=== PATIENT | female | born 1995 | race Caucasian/White ===

== ENCOUNTER 2020-10-21 00:06 | Inpatient (IN) ==
[2020-10-21] MEDS ORDERED: D5 1/2 NS 1000 ML 1,000 ML IV ONE (00:24)
[2020-10-21 00:30] VITALS: BMI 23.3
[2020-10-21 00:37] LABS: BILIRUBIN,URINE NEGATIVE (NEGATIVE); BLOOD/HEMOGLOBIN,URINE 3+ (NEGATIVE); GLUCOSE, URINE NEGATIVE (NEGATIVE); KETONES,URINE NEGATIVE (NEGATIVE); LEUKOCYTE ESTERASE ,URINE 2+ (NEGATIVE); NITRITES,URINE NEGATIVE (NEGATIVE); PROTEIN,URINE NEGATIVE (NEGATIVE); UROBILINOGEN,URINE NORMAL (NORMAL)
[2020-10-21 00:47] LABS: AMORPHOUS SEDIMENT,UR TRACE /HPF (NEGATIVE); APPEARANCE,URINE CLEAR (CLEAR); BACTERIA,URINE TRACE /HPF (NEGATIVE); COLOR,URINE STRAW (YELLOW); RBC,URINE 0-2 /HPF (0-3); SQUAMOUS EPITHELIAL CELL,UR FEW /HPF (NEGATIVE)
[2020-10-21 00:48] LABS: AMNISURE ROM TEST NO MEMBRANES RUPTURE (NO RUPTURE)
[2020-10-21] MEDS ORDERED: PITOCIN ONE (00:49)
[2020-10-21] MEDS ORDERED: BETADINE SOLN ONE ×2 (00:49→10:35)
[2020-10-21] MEDS ORDERED: LR 1000 ML IV 0 ML IV ONE (00:50)
[2020-10-21] MEDS ORDERED: AMPICILLIN VIAL 2 GRAM ONE (00:50)
[2020-10-21] MEDS ORDERED: D5LR 1L W PITOCIN 10 UNITS/L 10 UNITS/1,000 ML BAG IV ONE (00:50)
[2020-10-21] MEDS ORDERED: D5 1/2 NS 1L W PITOCIN 20 UNITS/L 20 UNITS/1,000 ML BAG IV ONE (00:50)
[2020-10-21] MEDS ORDERED: STADOL INJ ONE (00:50)
[2020-10-21] MEDS ORDERED: NS 100 ML IV 100 ML IV ONE (00:51)
[2020-10-21] MEDS ORDERED: D5 1/2 NS 1000 ML 1,000 ML IV SCH ×2 (01:00→03:00)
--- NOTE | 2020-10-21 01:45 | DR.OB ---
OB Quick Note - Assessment/Plan Assessment/Plan: L&D 10/31/20 at 1:15am S-No complaint except CTX. O-Afebrile,VSS NTO=195 with good LTV, +accel, no decel. CTX=q 2-3 min., strong by palpation CVX=6cm/90%/0/VTX AROM with clear fluid. IUPC and FSE placed. A-IUP at 40 4/7 weeks in active labor Unknown GBS P-Begin pitocin augmentation as needed. IV ABX in labor Anticipate
[2020-10-21] MEDS ORDERED: PHENERGAN INJ 25 MG IM PRN ×2 (02:16→04:33)
[2020-10-21] MEDS ORDERED: REGLAN INJ 10 MG VIAL IVP PRN (02:16)
[2020-10-21] MEDS ORDERED: PITOCIN IVP ONE (02:16)
[2020-10-21] MEDS ORDERED: D5LR 1L W PITOCIN 10 UNITS/L 10 UNITS/1,000 ML BAG IV PRN (02:16)
[2020-10-21] MEDS ORDERED: STADOL INJ IVP PRN (02:18)
[2020-10-21] MEDS ORDERED: AMPICILLIN VIAL 2 GRAM 2 G in NS 100 ML IV + SPIKE MINIBAG* 100 ML IV SCH (03:00)
[2020-10-21] MEDS ORDERED: XYLOCAINE 1 % (PLAIN) ONE (03:34)
[2020-10-21] MEDS ORDERED: MOTRIN TAB 800 MG PO PRN (04:33)
--- NOTE | 2020-10-21 04:33 | DR.OB ---
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 Head delivered over intact perineum. Nuchal cord x 2 reduced. Nose and mouth bulb suctioned. Body delivered over intact perineum. Cord clamped x 2 and cut. Infant handed to attendant. Cord sent for gases. Placenta delivered spontaneously / intact / 3 vessel cord. No CVX / vaginal / perineal tears. Viable male infant, VTX/OA, wt=7'9" and 9/10, stable to NBN. Mother stable to RR. PEI=[id number].
[2020-10-21] MEDS: D5 1/2 NS 1000 ML 1,000 ML with PITOCIN 20 UNITS IV SCH ×6 (05:30→20:04)
[2020-10-21] MEDS ORDERED: MILK OF MAGNESIA PO PRN (06:33)
[2020-10-21] MEDS ORDERED: ADACEL or BOOSTRIX TDaP VACCINE IM ONE (06:33)
[2020-10-21] MEDS ORDERED: DERMOPLAST PAIN RELIEF SPRAY TOP PRN (06:33)
[2020-10-21] MEDS ORDERED: AMBIEN PO PRN (06:33)
[2020-10-21] MEDS: PRENATAL PLUS PO SCH (09:00)
[2020-10-22 04:47] LABS: HEMATOCRIT 35.6 % (36.0-47.0); HEMOGLOBIN 11.2 g/dL (12.0-16.0)
[2020-10-22] MEDS: D5 1/2 NS 1000 ML 1,000 ML with PITOCIN 20 UNITS IV SCH ×2 (06:13)
[2020-10-22] MEDS: PRENATAL PLUS PO SCH (09:37)
[2020-10-22 13:23] VITALS: BP 111/71
== END 2020-10-22 13:30 | disposition home or self-care (01) | DRG 807 ==
LOC: ER 00:06 → LD 00:45 → MED/SURG 06:14
PROVIDERS: ADMIT Specialist; ATTEND Specialist
DX: O80 Encounter for full-term uncomplicated delivery; Z37.0 Single live birth; Z3A.40 40 weeks gestation of pregnancy; Z20.822 Contact with and (suspected) exposure to COVID-19

== ENCOUNTER 2022-04-01 17:01 | Inpatient (IN) ==
[2022-04-01 17:15] VITALS: BMI 24.0
[2022-04-01 17:24] LABS: BILIRUBIN,URINE NEGATIVE (NEGATIVE); BLOOD/HEMOGLOBIN,URINE 1+ (NEGATIVE); GLUCOSE, URINE NEGATIVE (NEGATIVE); KETONES,URINE NEGATIVE (NEGATIVE); LEUKOCYTE ESTERASE ,URINE 1+ (NEGATIVE); NITRITES,URINE NEGATIVE (NEGATIVE); PROTEIN,URINE 1+ (NEGATIVE); UROBILINOGEN,URINE NORMAL (NORMAL)
[2022-04-01 17:29] LABS: APPEARANCE,URINE CLEAR (CLEAR); BACTERIA,URINE 1+ /HPF (NEGATIVE); COLOR,URINE YELLOW (YELLOW); SQUAMOUS EPITHELIAL CELL,UR FEW /HPF (NEGATIVE)
[2022-04-01] MEDS ORDERED: PITOCIN IVP ONE (17:29)
[2022-04-01] MEDS ORDERED: PHENERGAN INJ 25 MG IM PRN ×2 (17:29→19:59)
[2022-04-01] MEDS ORDERED: REGLAN INJ 10 MG VIAL IVP PRN (17:29)
[2022-04-01] MEDS ORDERED: D5 LR + PITOCIN 10 UNITS/L 10 UNITS/1,000 ML BAG IV PRN (17:29)
[2022-04-01 17:30] LABS: AMNISURE ROM TEST THERE IS A RUPTURE (NO RUPTURE)
[2022-04-01] MEDS ORDERED: STADOL INJ IVP PRN (17:32)
[2022-04-01] MEDS ORDERED: BETADINE SOLN ONE (17:37)
[2022-04-01 17:59] LABS: BASOPHILS % (AUTO) 0.2 % (0.2-1.0); EOSINOPHILS % (AUTO) 0.5 % (0.9-2.9); HEMATOCRIT 30.2 % (36.0-47.0); HEMOGLOBIN 9.9 g/dL (12.0-16.0); LYMPHOCYTES # (AUTO) 1.9 X10^3/uL (1.3-2.9); LYMPHOCYTES % (AUTO) 25.7 % (21.0-51.0); MEAN CORPUSCULAR HEMOGLOBIN 24.4 pg (27.0-34.0); MEAN CORPUSCULAR HGB CONC 32.9 g/dL (33.0-35.0); MEAN CORPUSCULAR VOLUME 74.3 fL (80.0-100.0); MEAN PLATELET VOLUME 9.6 fL (7.4-11.0); MONOCYTES # (AUTO) 0.6 x10^3/uL (0.3-0.8); MONOCYTES % (AUTO) 7.5 % (0.0-13.0); NEUTROPHILS # (AUTO) 4.9 x10^3/uL (2.2-4.8); NEUTROPHILS % (AUTO) 66.1 % (42.0-75.0); RED BLOOD COUNT 4.07 X10^6/uL (3.5-5.4); RED CELL DISTRIBUTION WIDTH 17.3 % (11.6-16.5); WHITE BLOOD COUNT 7.4 X10^3/uL (3.6-10.0)
[2022-04-01] MEDS ORDERED: LR 1,000 ML IV 1,000 ML IV SCH (18:00)
[2022-04-01 18:07] LABS: BLOOD UREA NITROGEN 10 mg/dL (7-18); CARBON DIOXIDE 24.6 mmol/L (21-32); CHLORIDE 102 mmol/L (98-107); CREATININE 0.62 mg/dL (0.55-1.02); SODIUM 136 mmol/L (136-145); eGFR NON BLACK RACES > 60 (>60)
[2022-04-01 18:08] LABS: MICROCYTOSIS SLIGHT; PLATELET MORPHOLOGY COMMENT NORMAL (NORMAL)
[2022-04-01] MEDS ORDERED: MOTRIN TAB 800 MG PO PRN ×2 (19:59→21:00)
[2022-04-01] MEDS ORDERED: XYLOCAINE 1 % (PLAIN) ONE (20:03)
[2022-04-01] MEDS: D5 1/2 NS 1,000 ML 1,000 ML with PITOCIN 20 UNITS IV SCH ×2 (20:20)
[2022-04-01] MEDS ORDERED: MILK OF MAGNESIA PO PRN (21:00)
[2022-04-01] MEDS ORDERED: AMBIEN PO PRN (21:00)
[2022-04-02] MEDS: D5 1/2 NS 1,000 ML 1,000 ML with PITOCIN 20 UNITS IV SCH ×4 (04:15→12:31)
[2022-04-02 06:30] LABS: HEMATOCRIT 26.2 % (36.0-47.0); HEMOGLOBIN 8.8 g/dL (12.0-16.0)
[2022-04-02] MEDS ORDERED: NS 100 ML IV 100 ML with VENOFER 400 MG IV NR ×2 (09:27)
[2022-04-02] MEDS: PRENATAL PLUS PO SCH (10:11)
[2022-04-02] MEDS: DERMOPLAST PAIN RELIEF SPRAY TOP PRN (22:20)
[2022-04-02] MEDS: BETADINE SOLN TOP SCH (23:09)
[2022-04-03] MEDS: DERMOPLAST PAIN RELIEF SPRAY TOP PRN (05:28)
[2022-04-03 10:40] VITALS: BP 103/61
[2022-04-03] MEDS: BETADINE SOLN TOP SCH (10:42)
[2022-04-03] MEDS: PRENATAL PLUS PO SCH (10:43)
== END 2022-04-03 10:55 | disposition home or self-care (01) | DRG 807 ==
LOC: ER 17:01 → LD 17:24 → MED/SURG 21:01
PROVIDERS: ADMIT Obstetrics & Gynecology Obstetrics; ATTEND Obstetrics & Gynecology Obstetrics
DX: O70.0 First degree perineal laceration during delivery; Z3A.38 38 weeks gestation of pregnancy; Z20.822 Contact with and (suspected) exposure to COVID-19; Z37.0 Single live birth; O26.893 Other specified pregnancy related conditions, third trimester

== ENCOUNTER 2024-12-23 00:18 | Inpatient (IN) ==
[2024-12-23 00:34] VITALS: BMI 23.8
[2024-12-23 00:37] LABS: BILIRUBIN,URINE NEGATIVE (NEGATIVE); BLOOD/HEMOGLOBIN,URINE NEGATIVE (NEGATIVE); GLUCOSE, URINE NEGATIVE (NEGATIVE); KETONES,URINE NEGATIVE (NEGATIVE); LEUKOCYTE ESTERASE ,URINE NEGATIVE (NEGATIVE); NITRITES,URINE NEGATIVE (NEGATIVE); PROTEIN,URINE NEGATIVE (NEGATIVE); UROBILINOGEN,URINE NORMAL (NORMAL)
[2024-12-23 00:50] LABS: APPEARANCE,URINE CLEAR (CLEAR); COLOR,URINE STRAW (YELLOW)
[2024-12-23 00:50] LABS: AMNISURE ROM TEST THERE IS A RUPTURE (NO RUPTURE)
[2024-12-23 01:19] LABS: BASOPHILS % (AUTO) 0.2 % (0.2-1.0); EOSINOPHILS # (AUTO) 0.1 x10^3/uL (0.0-0.2); EOSINOPHILS % (AUTO) 0.7 % (0.9-2.9); HEMATOCRIT 28.9 % (36.0-47.0); HEMOGLOBIN 9.5 g/dL (12.0-16.0); LYMPHOCYTES % (AUTO) 26.5 % (21.0-51.0); MEAN CORPUSCULAR HEMOGLOBIN 24.8 pg (27.0-34.0); MEAN CORPUSCULAR VOLUME 75.3 fL (80.0-100.0); MEAN PLATELET VOLUME 8.8 fL (7.4-11.0); MONOCYTES # (AUTO) 0.7 x10^3/uL (0.3-0.8); NEUTROPHILS # (AUTO) 4.8 x10^3/uL (2.2-4.8); NEUTROPHILS % (AUTO) 63.6 % (42.0-75.0); PLATELET COUNT 154 X10^3/uL (150.0-450.0); RED BLOOD COUNT 3.84 X10^6/uL (3.5-5.4); RED CELL DISTRIBUTION WIDTH 16.8 % (11.6-16.5); WHITE BLOOD COUNT 7.5 X10^3/uL (3.6-10.0)
[2024-12-23 01:22] LABS: BLOOD UREA NITROGEN 14 mg/dL (7-18); CARBON DIOXIDE 24.4 mmol/L (21-32); CHLORIDE 104 mmol/L (98-107); GLUCOSE 74 mg/dL (65-99); POTASSIUM 3.6 mmol/L (3.5-5.1); SODIUM 139 mmol/L (136-145); eGFR NON BLACK RACES > 60 (>60)
[2024-12-23] MEDS: LR 1,000 ML IV 1,000 ML IV SCH (02:10)
[2024-12-23] MEDS: OXYTOCIN 20 UNIT/1,000 ML-NS 20 UNIT/1,000 ML PLAST..BAG IV PRN (02:15)
[2024-12-23] MEDS ORDERED: REGLAN INJ 10 MG VIAL IVP PRN (02:36)
[2024-12-23] MEDS ORDERED: ZOFRAN INJ 4 MG VIAL IVP PRN (02:36)
[2024-12-23] MEDS ORDERED: NUBAIN INJ 20 MG AMP IVP PRN (02:36)
[2024-12-23] MEDS: LR 1,000 ML IV 1,000 ML IV ONE (03:11)
[2024-12-23] MEDS: BETADINE SOLN ONE (06:08)
[2024-12-23] MEDS: PITOCIN IVP ONE (06:22)
[2024-12-23] MEDS ORDERED: MOTRIN TAB 800 MG PO PRN (06:38)
[2024-12-23] MEDS: OXYTOCIN 20 UNIT/1,000 ML-NS 20 UNIT/1,000 ML PLAST..BAG IV SCH (07:16)
[2024-12-23] MEDS: PITOCIN ONE (07:20)
[2024-12-23] MEDS ORDERED: DERMOPLAST PAIN RELIEF SPRAY TOP PRN (07:54)
[2024-12-23] MEDS ORDERED: AMBIEN PO PRN (07:54)
[2024-12-23] MEDS ORDERED: MILK OF MAGNESIA PO PRN (07:54)
[2024-12-23] MEDS: PRENATAL PLUS PO SCH (09:11)
[2024-12-23] MEDS: NS 100 ML IV 100 ML with VENOFER 400 MG IV ONE (18:33)
[2024-12-24 06:45] LABS: HEMATOCRIT 30.3 % (36.0-47.0); HEMOGLOBIN 9.8 g/dL (12.0-16.0)
[2024-12-24 09:07] VITALS: BP 101/59; PULSE 72; RESP 20; TEMP 97.9; O2SAT 99
== END 2024-12-24 11:40 | disposition home or self-care (01) | DRG 807 ==
LOC: ER 00:18 → LD 01:26 → MED/SURG 07:56
PROVIDERS: ADMIT Obstetrics & Gynecology Obstetrics; ATTEND Obstetrics & Gynecology Obstetrics
DX: Z3A.38 38 weeks gestation of pregnancy; O80 Encounter for full-term uncomplicated delivery; Z37.0 Single live birth